=== PATIENT | male | born 1980 | race Hispanic/Latino ===

== ENCOUNTER 2018-07-26 13:44 | Emergency (ER) | payer OTHER ==
[2018-07-26 13:53] VITALS: BP 139/70; PULSE 61; RESP 18; TEMP 97.6; O2SAT 99
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
== END 2018-07-26 15:47 | disposition home or self-care (01) ==
LOC: H.ER 13:44
DX: S49.91XA Unspecified injury of right shoulder and upper arm, initial encounter (principal); S14.3XXA Injury of brachial plexus, initial encounter; V81 Occupant of railway train or railway vehicle injured in transport accident